=== PATIENT | male | born 2000 | race Caucasian/White ===

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

== ENCOUNTER 2019-01-28 18:05 | Emergency (ER) | payer OTHER ==
[2019-01-28 18:15] VITALS: BP 118/60
--- NOTE | 2019-01-28 18:32 | UC ---
Throat Pain/Nasal Gentry HPI - HPI Summary HPI Summary: has been on Avalox for 4 days for pna--yesterday develped pain in throat and mouth--hurts no swallow fevers have resolved---cough and chest tightness - History of Current Complaint Chief Complaint: UCRespiratory Stated Complaint: THROAT COMPLAINT Time Seen by Provider: 01/28/19 18:20 Hx Obtained From: Patient Onset/Duration: Sudden Onset, Lasting Days - 1, Still Present Pain Intensity: 7 Pain Scale Used: 0-10 Numeric Cough: Nonproductive - Allergies/Home Medications Allergies/Adverse Reactions: Allergies Allergy/AdvReac Type Severity Reaction Status Date / Time No Known Allergies Allergy Unverified 01/28/19 18:16 Home Medications: Home Medications Moxifloxacin TAB(NF) [Avelox TAB (NF)] 1 tab PO DAILY 01/28/19 [History Confirmed 01/28/19] Omeprazole 1 tab PO DAILY 01/28/19 [History Confirmed 01/28/19] PMH/Surg Hx/FS Hx/Imm Hx Previously Healthy: No GI/ History: Gastroesophageal Reflux - Surgical History Surgical History: Yes Surgery Procedure, Year, and Place: UNDESCENDED TESTICLE - Family History Known Family History: Positive: None - Social History Occupation: Student Lives: With Family Alcohol Use: None Substance Use Type: None Smoking Status (MU): Never Smoked Tobacco - Immunization History Vaccination Up to Date: Yes Review of Systems All Other Systems Reviewed And Are Negative: Yes Constitutional: Positive: Fever, Chills, Fatigue Skin: Positive: Negative Eyes: Positive: Negative ENT: Positive: Sore Throat, Other - mouth pain Respiratory: Positive: Cough Cardiovascular: Positive: Negative Gastrointestinal: Positive: Negative Genitourinary: Positive: Negative Motor: Positive: Negative Neurovascular: Positive: Negative Musculoskeletal: Positive: Negative Neurological: Positive: Negative Psychological: Positive: Negative Is Patient Immunocompromised?: No Physical Exam Triage Information Reviewed: Yes Appearance: No Pain Distress, Well-Nourished, Ill-Appearing - mild Vital Signs: Initial Vital Signs Temp 97.9 F 01/28/19 18:13 Pulse 77 01/28/19 18:13 Resp 16 01/28/19 18:13 BP 118/60 01/28/19 18:13 Pulse Ox 97 01/28/19 18:13 Vital Signs Reviewed: Yes Eye Exam: Normal Eyes: Positive: Conjunctiva Clear ENT Exam: Other ENT: Positive: Normal ENT inspection, Hearing grossly normal, Pharyngeal erythema, TMs normal, Uvula midline, Other - white coating on tongue and posterior pharynx. Negative: Nasal congestion, Tonsillar swelling, Tonsillar exudate, Hoarse voice, Dental tenderness, Sinus tenderness Dental Exam: Normal Neck exam: Normal Neck: Positive: Supple, Nontender Respiratory Exam: Normal Respiratory: Positive: Chest non-tender, Lungs clear, Normal breath sounds, No respiratory distress, No accessory muscle use Cardiovascular Exam: Normal Cardiovascular: Positive: RRR, No Murmur, Pulses Normal, Brisk Capillary Refill Musculoskeletal Exam: Normal Musculoskeletal: Positive: Strength Intact, ROM Intact, No Edema Neurological Exam: Normal Neurological: Positive: Alert, Muscle Tone Normal Psychological Exam: Normal Skin Exam: Normal Diagnostics - Laboratory Lab Results: rst - Throat Pain/Nasal Course/Dx - Course Course Of Treatment: nystatin swish , albuterol mdi with spacer, increase fluids follow with pcp - Differential Dx/Diagnosis Provider Diagnosis: Bronchospasm, acute, Thrush, oral Discharge ED - Sign-Out/Discharge Documenting (check all that apply): Patient Departure All imaging exams completed and their final reports reviewed: No Studies - Discharge Plan Condition: Stable Disposition: HOME Prescriptions: Nystatin susp 16 oz 500,000 unit PO QID #16 oz Patient Education Materials: Oral Candidiasis (ED), How to Use a Metered-Dose Inhaler and a Spacer (ED) Referrals: Dk Tony MD [Primary Care Provider] - If Needed - Billing Disposition and Condition Condition: STABLE Disposition: Home
[2019-01-28] MEDS ORDERED: Albuterol HFA INHALER* 8 gm MDI INH ONE (18:33)
[2019-01-28] MEDS ORDERED: Nystatin SUSPENSION* 100000 UNITS/ML 5 ML UDC PO ONE ×2 (18:35→18:36)
== END 2019-01-28 18:56 | disposition home or self-care (01) ==
LOC: UCEAST 18:05
DX: J98.01 Acute bronchospasm (principal); B37.9 Candidiasis, unspecified; K21.9 Gastro-esophageal reflux disease without esophagitis
CPT/HCPCS: 87651; 99212; A9270-GY; G0463